=== PATIENT | female | born 1940 | race Caucasian/White ===

== ENCOUNTER 2018-03-07 13:33 | Emergency (ER) | payer OTHER ==
[2018-03-07 13:55] VITALS: BMI 25.7
--- NOTE | 2018-03-07 14:32 | PDOC ---
Attending Attestation - Resident Resident Name: Becca Markham - ED Attending Attestation I have performed the following: I have examined & evaluated the patient, The case was reviewed & discussed with the resident, I agree w/resident's findings & plan, Exceptions are as noted - HPI HPI: 03/07/18 15:17 The patient is an 78 year old female with past medical history of cholecystectomy and who presents to the ED after fall today. The patient was upstairs on the 8th floor walking with her friend when she fell to the side, hitting her head on the wall, and falling to the ground, hitting her left side. She was able to recall the event and was unable to ambulate afterwards. In the ED she complaints of left side and back pain without any numbness, tingling, or focal neurological deficits. She denies any prodromal symptoms prior to falling and can not elaborate on how she fell. Denies any fevers or chills. Denies CP, SOB. - Physicial Exam PE: 03/07/18 15:18 agree with resident exam - Medical Decision Making 03/07/18 15:19 78yo F denies PMH presents to the ED with syncopal episode without prodrome. Vitals with borderline hypotension to 90s systolic. Exam with lower back paraspinal ttp. Syncopal episode concerning for arrhythmia given lack of prodrome. Plan -labs -UA -CXR, pelvis XR -CTH, CT c-spine -admit tele obs 03/07/18 16:11 Labs wnl. CTH/c-spine negative for acute pathology CXR/pelvis XR pending Pt given robaxin and tylenol for sx control, still having difficulty walking. All pain is paraspinal, no midline spinal ttp Plan discussed with pt to admit to tele obs but she adamantly refuses to stay because she does not want to be in the hospital. Explained to patient my reason for recommending admission, especially because her syncopal episode is concerning for a possible cardiac arrhythmia. I also explained that if this were to recur, she could pass out again, or even . She still refuses to stay. The patient is clinically sober, free from distracting injury, appears to have intact insight and judgment and reason and in my opinion has the capacity to make decisions. The patient presents with syncope. I have explained that I am concerned that this may represent a deadly heart rhythm; she has verbalized an understanding of my concerns. I have told the patient that while her labs were normal, she could still have an abnormal rhythm. I have discussed the need for admission and cardiac monitoring to get more information about potential causes of the patients syncope. I have told the patient that if she leaves and has syncope or abnormal heart rhythm, she could get much worse, could become critically ill, and could possibly become disabled or . I have offered to give the patient more pain medication. I have asked her to stay in the hospital for serial labs. I have discussed these concerns with the patients friend who is at the bedside and she is unable to convince her to stay for further evaluation. The patient is not willing to undergo a observation. She is unwilling to stay overnight for monitoring. She is refusing any further care and is leaving against medical advice. I am unable to convince the patient to stay, I have asked her to return as soon as possible to complete her evaluation. I have spoken with Dr. Diego Villafana (works with pt's PMD Dr. Cortez) who spoke with the patient at the bedside and tried to convince her to stay. She refused to stay despite his conversation with her. I have answered all of her questions. Discharge Disposition - Diagnosis Syncope and collapse - Discharge Dispostion Disposition: AGAINST MEDICAL ADVICE Condition at time of disposition: Stable - Prescriptions Prescriptions: Acetaminophen [Tylenol -] 500 mg PO Q4H #100 tablet Methocarbamol [Robaxin -] 500 mg PO BID #10 tablet - Referrals Referrals: Patrice Cortez MD [Primary Care Provider] - - Patient Instructions Additional Instructions: You were seen in the ED after a fall and loss of consciousness. In the ED you were evaluated with labwork and imaging. It is recommended that you be admitted for observation in the hospital. The risks of leaving the hospital without complete evaluation for your fall and loss of consciousness include , cardiac arrest, heart attack, stroke and repeated loss of consciousness. These risks have been discussed with your for > 45min. You express understanding of these risks and still desire to leave the hospital against medical advice. You are advised to follow up with your primary care physician within 1 week for further evaluation and treatment. You were prescribed a short course of medication for pain and muscle relaxation. Please take as directed. Return to the ED immediately if you experience worsening lower back pain, headache, loss of consciousness, chest pain, shortness of breath, abdominal pain , continued difficulty walking, fever, nausea or vomiting. - Post Discharge Activity Heart Score/ECG Review #1 03/07/18 15:18 Twelve-lead EKG was performed and reviewed by me. Sinus rhythm, rate 80 to. Left axis deviation.+ Right bundle branch block.+ PVC. When compared to EKG from 11/06/2017, no significant change.
[2018-03-07 14:47] LABS: BASO % 0.6 % (0-2.0); EOS % 1.1 % (0-4.5); HEMATOCRIT 38.7 % (32.4-45.2); HEMOGLOBIN 12.9 GM/dL (10.7-15.3); LYMPH % 30.2 % (8-40); MCH 28.8 pg (25.7-33.7); MCHC 33.4 g/dl (32.0-36.0); MEAN CELL VOLUME 86.2 fl (80-96); MEAN PLT VOLUME 9.6 fl (7.5-11.1); MONO % 9.8 % (3.8-10.2); NEUT % 58.3 % (42.8-82.8); PLATELET COUNT 149 K/MM3 (134-434); RBC 4.49 M/mm3 (3.60-5.2); RDW 13.8 % (11.6-15.6); WHITE BLOOD COUNT 5.4 K/mm3 (4.0-10.0)
[2018-03-07 15:07] LABS: ALBUMIN 3.6 g/dl (3.4-5.0); ANION GAP 6 (8-16); BILIRUBIN,TOTAL 0.3 mg/dL (0.2-1.0); BLOOD UREA NITROGEN 18 mg/dL (7-18); CALCIUM 8.5 mg/dL (8.5-10.1); CHLORIDE 104 mmol/L (98-107); CO2 31 mmol/L (21-32); CREATININE 0.9 mg/dL (0.55-1.02); GLUCOSE,RANDOM 136 mg/dL (74-106); SGOT/AST 21 U/L (15-37); SGPT/ALT 20 U/L (12-78); SODIUM 141 mmol/L (136-145); TOT PROT 7.5 g/dl (6.4-8.2)
[2018-03-07 15:08] LABS: ALK PHOS 71 U/L (45-117)
[2018-03-07] MEDS ORDERED: METHOCARBAMOL 500 MG TABLET PO ONE (15:39)
--- NOTE | 2018-03-07 15:41 | PDOC ---
History of Present Illness <Phan Larson - Last Filed: 03/07/18 17:03> - History of Present Illness Initial Comments: 78 year old woman with no past medical history who presents after fall while walking down a hospital hallway and hitting her head on a wall. The patient is not on anti-coagulants. Denies tripping on the floor and does not recall what had caused her to fall and hit her head. She complains of L lower back pain, nonradiating, described as muscle pain. She denies chest pain, dizziness, vertigo, lightheadedness, nausea, headache, shortness of breath or abdominal pain. She has no other complaints at bedside. PMHX: as in HPI PSHX: cholecystectomy, c-sections Meds: none Allergies: naproxen Tob: none Etoh: none Rec drugs: none PCP: Dana <Becca Markham - Last Filed: 03/07/18 18:23> - General Chief Complaint: Syncope/Near Syncope Stated Complaint: FALL Time Seen by Provider: 03/07/18 14:05 Past History <Phan Larson - Last Filed: 03/07/18 17:03> - Past Medical History Anemia: No Asthma: No COPD: No HTN: No - Surgical History GI Surgery: Yes (Cholecystectomy) - Immunization History Immunization Up to Date: No - Suicide/Smoking/Psychosocial Hx Smoking History: Never smoked Have you smoked in the past 12 months: No Hx Alcohol Use: No Drug/Substance Use Hx: No Substance Use Type: Alcohol <Becca Markham - Last Filed: 03/07/18 18:23> - Past Medical History Allergies/Adverse Reactions: Allergies Allergy/AdvReac Type Severity Reaction Status Date / Time naproxen sodium [From Aleve] Allergy Verified 03/07/18 13:47 Home Medications: Ambulatory Orders Acetaminophen [Tylenol -] 500 mg PO Q4H #100 tablet 03/07/18 Methocarbamol [Robaxin -] 500 mg PO BID #10 tablet 03/07/18 Review of Systems - Review of Systems Able to Perform ROS?: Yes Is the patient limited Wolof proficient: No Constitutional: No: Chills, Diaphoresis, Fever HEENTM: No: Blurred Vision, Tinnitus Respiratory: No: Cough, Orthopnea, Shortness of Breath Cardiac (ROS): No: Chest Pain ABD/GI: No: Constipated, Diarrhea, Nausea, Vomiting : No: Burning, Dysuria Musculoskeletal: Yes: See HPI, Back Pain Neurological: No: Headache, Numbness, Tingling <Becca Markham - Last Filed: 03/07/18 18:23> *Physical Exam - Vital Signs Last Vital Signs Temp Pulse Resp BP Pulse Ox 97.4 F L 84 18 94/70 99 03/07/18 13:52 03/07/18 13:52 03/07/18 13:52 03/07/18 13:52 03/07/18 13:52 <NassefJcmna - Last Filed: 03/07/18 17:03> - Vital Signs Last Vital Signs Temp Pulse Resp BP Pulse Ox 97.4 F L 84 18 94/70 99 03/07/18 13:52 03/07/18 13:52 03/07/18 13:52 03/07/18 13:52 03/07/18 13:52 - Physical Exam Comments: 03/07/18 15:34 GENERAL: Awake, alert, and fully oriented, in no acute distress HEAD: No signs of trauma, normocephalic, atraumatic EYES: EOMI, sclera anicteric, conjunctiva clear ENT: oropharynx clear without exudates. Moist mucosa NECK: Normal ROM LUNGS: No distress, speaks full sentences, clear to auscultation bilaterally HEART: Regular rate and rhythm, normal S1 and S2, no murmurs, rubs or gallops, peripheral pulses normal and equal bilaterally. ABDOMEN: Soft, nontender. No guarding, no rebound. No masses BACK: + L paraspinal tenderness EXTREMITIES : Normal inspection, Normal range of motion, no edema. No clubbing or cyanosis. NEUROLOGICAL: Cranial nerves II through XII grossly intact. Normal speech, difficulty ambulating 2/2 pain, requires assistance no focal sensorimotor deficits, 5/5 strength in bilateral upper and lower extremities. SKIN: Warm, Dry, normal turgor, no rashes or lesions noted <Becca Markham - Last Filed: 03/07/18 18:23> ED Treatment Course - LABORATORY CBC & Chemistry Diagram: 03/07/18 14:31 03/07/18 14:31 - ADDITIONAL ORDERS Additional order review: Laboratory Results 03/07/18 03/07/18 14:31 14:31 Sodium 141 Potassium 4.0 Chloride 104 Carbon Dioxide 31 Anion Gap 6 L BUN 18 Creatinine 0.9 Creat Clearance w eGFR > 60 Random Glucose 136 H Calcium 8.5 Total Bilirubin 0.3 AST 21 ALT 20 Alkaline Phosphatase 71 Troponin I < 0.02 Total Protein 7.5 Albumin 3.6 03/07/18 14:31 RBC 4.49 MCV 86.2 MCHC 33.4 RDW 13.8 MPV 9.6 Neutrophils % 58.3 D Lymphocytes % 30.2 D Monocytes % 9.8 Eosinophils % 1.1 Basophils % 0.6 - RADIOLOGY Radiology Studies Ordered: Category Date Time Status CERVICAL SPINE CT W/O CONTR [CT] Stat CT Scan 03/07/18 14:[address] WITHOUT CONTRAST [CT] Stat CT Scan 03/07/18 14:35 Completed CHEST X-RAY PORTABLE* [RAD] Stat Radiology 03/07/18 14:35 Taken PELVIS [RAD] Stat Radiology 03/07/18 14:35 Taken - Medications Given in the ED: ED Medications Discontinued Medications Generic Name Dose Route Start Last Admin Trade Name Freq PRN Reason Stop Dose Admin Acetaminophen 1,000 mg 03/07/18 15:49 03/07/18 16:15 Ofirmev Injection - IVPB 03/07/18 15:50 1,000 mg ONCE ONE Administration Methocarbamol 500 mg 03/07/18 15:39 03/07/18 15:42 Robaxin - PO 03/07/18 15:40 500 mg ONCE ONE Administration <Nassef,Yomna - Last Filed: 03/07/18 17:03> - LABORATORY CBC & Chemistry Diagram: 03/07/18 14:31 03/07/18 14:31 - ADDITIONAL ORDERS Additional order review: Laboratory Results 03/07/18 03/07/18 14:31 14:31 Sodium 141 Potassium 4.0 Chloride 104 Carbon Dioxide 31 Anion Gap 6 L BUN 18 Creatinine 0.9 Creat Clearance w eGFR > 60 Random Glucose 136 H Calcium 8.5 Total Bilirubin 0.3 AST 21 ALT 20 Alkaline Phosphatase 71 Troponin I < 0.02 Total Protein 7.5 Albumin 3.6 03/07/18 14:31 RBC 4.49 MCV 86.2 MCHC 33.4 RDW 13.8 MPV 9.6 Neutrophils % 58.3 D Lymphocytes % 30.2 D Monocytes % 9.8 Eosinophils % 1.1 Basophils % 0.6 <Becca Markham - Last Filed: 03/07/18 18:23> Medical Decision Making - Medical Decision Making 78 year old woman with no past medical history who presents after fall while walking down a hospital hallway and hitting her head on a wall. The patient is not on anti-coagulants. Denies tripping on the floor and does not recall what had caused her to fall and hit her head. DDX: Arrythmia vs ACS vs intracranial bleed / aneurysm W/U: - head CT, Cspine CT - cbc, cmp, trop - pelvic XR, CXR - ua, ucx - EKG TX: - Tylenol - Robaxin ED Course: Patient assessed. Stable at bedside. 03/07/18 15:41 Patient reassessed. Stable. Robaxin and Tylenol ordered. Patient desires to go home and not be admitted for observation. 03/07/18 15:51 Attending at bedside. Discussed with patient that the risks of going home against medical advise include , heart attack, stroke, repeated loss of consciousness. Patient taken to XR. Unable to ambulate w/o assistance. Pelvic XR: unremarkable CXR: unremarkable UA: 15 wbc Patient at test desk trouble locator desires to leave AMA. Patient giving thorough discharge instruction, prescription for pain and muscle relaxant sent, able to ambulate slowly without assistance. Attending with patient, observed ambulation, reminded patient of risks of leaving and need for further evaluation. Patient discharged AMA 03/07/18 18:18 03/07/18 18:19 03/07/18 18:21 03/07/18 18:21 <Becca Markham - Last Filed: 03/07/18 18:23> *DC/Admit/Observation/Transfer - Attestations Physician Attestion: 03/07/18 17:04 I, Dr. Phan Larson MD, attest that this document has been prepared under my direction and personally reviewed by me in its entirety. I further attest, that it accurately reflects all work, treatment, procedures and medical decision -making performed by me. <Phan Larson - Last Filed: 03/07/18 17:03> - Discharge Dispostion Decision to Admit order: No <Becca Markham - Last Filed: 03/07/18 18:23> Diagnosis at time of Disposition: Syncope and collapse - Discharge Dispostion Disposition: AGAINST MEDICAL ADVICE Condition at time of disposition: Stable - Prescriptions Prescriptions: Acetaminophen [Tylenol -] 500 mg PO Q4H #100 tablet Methocarbamol [Robaxin -] 500 mg PO BID #10 tablet - Referrals Referrals: Patrice Cortez MD [Primary Care Provider] - - Patient Instructions Additional Instructions: You were seen in the ED after a fall and loss of consciousness. In the ED you were evaluated with labwork and imaging. It is recommended that you be admitted for observation in the hospital. The risks of leaving the hospital without complete evaluation for your fall and loss of consciousness include , cardiac arrest, heart attack, stroke and repeated loss of consciousness. These risks have been discussed with your for > 45min. You express understanding of these risks and still desire to leave the hospital against medical advice. You are advised to follow up with your primary care physician within 1 week for further evaluation and treatment. You were prescribed a short course of medication for pain and muscle relaxation. Please take as directed. Return to the ED immediately if you experience worsening lower back pain, headache, loss of consciousness, chest pain, shortness of breath, abdominal pain , continued difficulty walking, fever, nausea or vomiting. - Post Discharge Activity
[2018-03-07] MEDS ORDERED: METHOCARBAMOL 500 MG TABLET ONE (15:42)
[2018-03-07] MEDS ORDERED: ACETAMINOPHEN 1000 MG/100 ML VIAL (NON FORMULARY) IVPB ONE (15:49)
[2018-03-07] MEDS ORDERED: ACETAMINOPHEN INJECTION 100 ML IVPB ONE (15:59)
[2018-03-07 17:05] LABS: URINE APPEARANCE CLOUDY; URINE BILIRUBIN NEGATIVE (<2.0 mg/dL); URINE COLOR YELLOW; URINE GLUCOSE (UA) NEGATIVE (NEGATIVE); URINE KETONE NEGATIVE (NEGATIVE); URINE LEUK ESTERASE 1+ (NEGATIVE); URINE NITRITE NEGATIVE (NEGATIVE); URINE PROTEIN NEGATIVE (NEGATIVE); URINE UROBILINOGEN NEGATIVE mg/dL (0.2-1.0)
[2018-03-07 17:07] LABS: EPI CELLS FEW /HPF (FEW); URINE BACTERIA FEW /hpf (NONE SEEN); URINE MUCUS FEW
[2018-03-07 17:52] VITALS: BP 136/76; PULSE 85; TEMP 98.2
--- NOTE | 2018-03-09 13:15 | EKG ---
Test Reason : Blood Pressure : / mmHG Vent. Rate : 082 BPM Atrial Rate : 082 BPM P-R Int : 192 ms QRS Dur : 120 ms QT Int : 420 ms P-R-T Axes : 061 -42 022 degrees QTc Int : 490 ms SINUS RHYTHM WITH OCCASIONAL PREMATURE VENTRICULAR COMPLEXES LEFT AXIS DEVIATION RIGHT BUNDLE BRANCH BLOCK ABNORMAL ECG Confirmed by Andrew Nicolas MD ([id number]) on 03/09/2018 1:14:54 PM Referred By: Confirmed By:Andrew Nicolas MD
== END 2018-03-07 17:50 | disposition left against medical advice (07) ==
LOC: JER 13:33
DX: R55 Syncope and collapse (principal); M54.5 Low back pain; W01.198A Fall on same level from slipping, tripping and stumbling with subsequent striking against other object, initial encounter; Y93.01 Activity, walking, marching and hiking; Y92.232 Corridor of hospital as the place of occurrence of the external cause; Y99.8 Other external cause status
CPT/HCPCS: 36415; 70450-TC; 71045-TC-FY; 72125-TC; 72170-TC-FY; 80053; 81003; 81015; 84484; 85025; 87086; 87186; 93005; 93010; 99283-25; J0131

== ENCOUNTER 2022-07-28 08:41 | Inpatient (IN) | payer OTHER ==
[2022-07-28 10:19] LABS: PH,URINE 7.5 (5.0-8.0); URINE APPEARANCE TURBID; URINE BILIRUBIN NEGATIVE (NEGATIVE); URINE COLOR YELLOW; URINE GLUCOSE (UA) NEGATIVE (NEGATIVE); URINE KETONE NEGATIVE (NEGATIVE)
[2022-07-28 10:20] LABS: EPI CELLS 44 /uL (0-25.1); HYALINE CASTS 1 /uL (0-3.1); URINE BACTERIA 18650 /uL (0-1359); URINE LEUK ESTERASE NEGATIVE (NEGATIVE); URINE NITRITE POSITIVE (NEGATIVE); URINE PROTEIN NEGATIVE (NEGATIVE); URINE RBC 50 /uL (0-23.9); URINE UROBILINOGEN 0.2 mg/dL (0.2-1.0); URINE WBC 33 /uL (0-25.8)
[2022-07-28] MEDS ORDERED: CEFTRIAXONE 1,000 MG in DEXTROSE 5%-WATER - 50 ML IVPB ONE (11:32)
[2022-07-28] MEDS ORDERED: CEFTRIAXONE 1 GM/50 ML BAG ONE (11:49)
[2022-07-28 12:16] LABS: BASO % 0.6 % (0-2.0); EOS % 0.2 % (0-4.5); HEMATOCRIT 37.9 % (32.4-45.2); HEMOGLOBIN 12.2 GM/dL (10.7-15.3); LYMPH % 11.6 % (8-40); MCH 27.4 pg (25.7-33.7); MCHC 32.4 g/dl (32.0-36.0); MEAN CELL VOLUME 84.6 fl (80-96); MEAN PLT VOLUME 9.7 fl (7.5-11.1); MONO % 9.5 % (3.8-10.2); NEUT % 78.1 % (42.8-82.8); PLATELET COUNT 246 10^3/uL (134-434); RBC 4.47 M/mm3 (3.60-5.2); RDW 14.1 % (11.6-15.6); WHITE BLOOD COUNT 8.6 K/mm3 (4.0-10.0)
[2022-07-28 12:25] LABS: INR 1.01 (0.83-1.09); PROTHROMBIN TIME (PATIENT) 11.6 SEC (9.7-13.0)
[2022-07-28 12:28] LABS: ACTIVATED PTT 27.7 SECONDS (25.2-36.5)
[2022-07-28] MEDS ORDERED: ACETAMINOPHEN 1000 MG/100 ML BAG IVPB ONE (12:29)
[2022-07-28 12:32] LABS: BLOOD UREA NITROGEN 22.6 mg/dL (7-18); CALCIUM 8.9 mg/dL (8.5-10.1)
[2022-07-28 12:33] LABS: ALBUMIN 3.2 g/dl (3.4-5.0)
[2022-07-28 12:36] LABS: CREATININE 0.8 mg/dL (0.55-1.3)
[2022-07-28 12:37] LABS: BILIRUBIN,TOTAL 0.5 mg/dL (0.2-1); TOT PROT 6.8 g/dl (6.4-8.2)
[2022-07-28 12:41] LABS: N-TERMINAL BNP 1356.5 pg/ml (5-450)
[2022-07-28] MEDS ORDERED: LIDOCAINE 5% TOPICAL PATCH TP ONE (13:39)
[2022-07-28] MEDS ORDERED: LIDOCAINE 5% TOPICAL PATCH ONE (14:28)
[2022-07-28] MEDS ORDERED: ACETAMINOPHEN INJECTION 100 ML IVPB ONE (14:28)
[2022-07-28] MEDS: LIDOCAINE PATCH REMOVAL MC SCH (21:18)
[2022-07-29 03:53] VITALS: BMI 26.4
[2022-07-29] MEDS ORDERED: ACETAMINOPHEN 325 MG TABLET (FP) PO PRN (08:49)
[2022-07-29] MEDS ORDERED: ACETAMINOPHEN 1000 MG/100 ML BAG IVPB PRN (09:27)
[2022-07-29 09:32] LABS: BASO % 0.6 % (0-2.0); EOS % 3.3 % (0-4.5); HEMATOCRIT 36.7 % (32.4-45.2); HEMOGLOBIN 11.8 GM/dL (10.7-15.3); LYMPH % 31.1 % (8-40); MCH 27.2 pg (25.7-33.7); MCHC 32.2 g/dl (32.0-36.0); MEAN CELL VOLUME 84.5 fl (80-96); MEAN PLT VOLUME 9.2 fl (7.5-11.1); MONO % 13.2 % (3.8-10.2); NEUT % 51.8 % (42.8-82.8); PLATELET COUNT 215 10^3/uL (134-434); RBC 4.34 M/mm3 (3.60-5.2); RDW 13.7 % (11.6-15.6); WHITE BLOOD COUNT 6.4 K/mm3 (4.0-10.0)
[2022-07-29 10:00] LABS: CALCIUM 8.7 mg/dL (8.5-10.1)
[2022-07-29 10:01] LABS: ALBUMIN 2.8 g/dl (3.4-5.0); BLOOD UREA NITROGEN 24.6 mg/dL (7-18)
[2022-07-29 10:04] LABS: CREATININE 0.8 mg/dL (0.55-1.3)
[2022-07-29 10:05] LABS: BILIRUBIN,TOTAL 0.5 mg/dL (0.2-1); TOT PROT 6.2 g/dl (6.4-8.2)
[2022-07-29 10:06] LABS: PHOSPHOROUS 3.3 mg/dL (2.5-4.9)
[2022-07-29] MEDS: ENOXAPARIN NA (PORCINE) 40 MG/0.4 ML DISP.SYRIN SQ SCH (10:16)
[2022-07-29] MEDS: CEFTRIAXONE 1 GM in DEXTROSE 5%-WATER - 50 ML IVPB SCH (19:00)
[2022-07-29] MEDS: LIDOCAINE PATCH REMOVAL MC SCH (23:28)
[2022-07-29] MEDS: POLYETHYLENE GLYCOL (HEALTHYLAX) 3350 17 GM PACKET PO SCH (23:28)
[2022-07-30 09:14] LABS: BASO % 0.8 % (0-2.0); EOS % 5.2 % (0-4.5); HEMATOCRIT 40.6 % (32.4-45.2); HEMOGLOBIN 13.1 GM/dL (10.7-15.3); LYMPH % 27.7 % (8-40); MCH 27.3 pg (25.7-33.7); MCHC 32.3 g/dl (32.0-36.0); MEAN CELL VOLUME 84.6 fl (80-96); MEAN PLT VOLUME 9.1 fl (7.5-11.1); MONO % 11.9 % (3.8-10.2); NEUT % 54.4 % (42.8-82.8); PLATELET COUNT 252 10^3/uL (134-434); WHITE BLOOD COUNT 6.3 K/mm3 (4.0-10.0)
[2022-07-30 09:35] LABS: CALCIUM 8.8 mg/dL (8.5-10.1)
[2022-07-30 09:36] LABS: ALBUMIN 2.9 g/dl (3.4-5.0); BLOOD UREA NITROGEN 18.3 mg/dL (7-18); MAGNESIUM 2.2 mg/dL (1.8-2.4)
[2022-07-30 09:39] LABS: CREATININE 0.8 mg/dL (0.55-1.3)
[2022-07-30 09:41] LABS: BILIRUBIN,TOTAL 0.4 mg/dL (0.2-1); TOT PROT 6.7 g/dl (6.4-8.2)
[2022-07-30] MEDS ORDERED: REGADENOSON 0.4 MG/5 ML PRE-FILLED SYRINGE IVPUSH ONE ×2 (10:00)
[2022-07-30] MEDS: POLYETHYLENE GLYCOL (HEALTHYLAX) 3350 17 GM PACKET PO SCH ×2 (13:18→21:41)
[2022-07-30] MEDS: ENOXAPARIN NA (PORCINE) 40 MG/0.4 ML DISP.SYRIN SQ SCH (13:43)
[2022-07-30] MEDS: CEFTRIAXONE 1 GM in DEXTROSE 5%-WATER - 50 ML IVPB SCH (13:45)
[2022-07-30] MEDS: ACETAMINOPHEN 325 MG TABLET (FP) PO PRN (13:48)
[2022-07-30] MEDS: LIDOCAINE PATCH REMOVAL MC SCH ×2 (21:41→21:43)
[2022-07-30 22:23] VITALS: RESP 18
[2022-07-31] MEDS: POLYETHYLENE GLYCOL (HEALTHYLAX) 3350 17 GM PACKET PO SCH ×2 (09:54→21:45)
[2022-07-31] MEDS: CEFTRIAXONE 1 GM in DEXTROSE 5%-WATER - 50 ML IVPB SCH (09:54)
[2022-07-31] MEDS: ENOXAPARIN NA (PORCINE) 40 MG/0.4 ML DISP.SYRIN SQ SCH (09:54)
[2022-07-31 11:16] LABS: BASO % 0.7 % (0-2.0); EOS % 5.3 % (0-4.5); HEMATOCRIT 37.8 % (32.4-45.2); HEMOGLOBIN 12.4 GM/dL (10.7-15.3); LYMPH % 26.7 % (8-40); MCH 27.9 pg (25.7-33.7); MCHC 32.9 g/dl (32.0-36.0); MEAN CELL VOLUME 84.9 fl (80-96); MEAN PLT VOLUME 9.3 fl (7.5-11.1); MONO % 13.1 % (3.8-10.2); NEUT % 54.2 % (42.8-82.8); PLATELET COUNT 235 10^3/uL (134-434); RBC 4.45 M/mm3 (3.60-5.2); RDW 13.8 % (11.6-15.6); WHITE BLOOD COUNT 6.7 K/mm3 (4.0-10.0)
[2022-07-31 11:45] LABS: CALCIUM 8.8 mg/dL (8.5-10.1)
[2022-07-31 11:46] LABS: ALBUMIN 2.8 g/dl (3.4-5.0); BLOOD UREA NITROGEN 29.4 mg/dL (7-18)
[2022-07-31 11:49] LABS: CREATININE 0.9 mg/dL (0.55-1.3)
[2022-07-31 11:51] LABS: BILIRUBIN,TOTAL 0.4 mg/dL (0.2-1); TOT PROT 6.4 g/dl (6.4-8.2)
[2022-07-31] MEDS: LIDOCAINE PATCH REMOVAL MC SCH (21:45)
[2022-08-01] MEDS: ACETAMINOPHEN 325 MG TABLET (FP) PO PRN (08:34)
[2022-08-01 09:48] LABS: BASO % 0.7 % (0-2.0); EOS % 4.7 % (0-4.5); HEMATOCRIT 39.8 % (32.4-45.2); HEMOGLOBIN 12.9 GM/dL (10.7-15.3); MCH 27.4 pg (25.7-33.7); MCHC 32.4 g/dl (32.0-36.0); MEAN CELL VOLUME 84.4 fl (80-96); MEAN PLT VOLUME 9.1 fl (7.5-11.1); MONO % 14.2 % (3.8-10.2); NEUT % 56.4 % (42.8-82.8); PLATELET COUNT 244 10^3/uL (134-434); RBC 4.72 M/mm3 (3.60-5.2); RDW 13.8 % (11.6-15.6); WHITE BLOOD COUNT 6.3 K/mm3 (4.0-10.0)
[2022-08-01 10:25] LABS: BLOOD UREA NITROGEN 26.8 mg/dL (7-18)
[2022-08-01 10:28] LABS: BILIRUBIN,TOTAL 0.4 mg/dL (0.2-1); CREATININE 0.8 mg/dL (0.55-1.3); MAGNESIUM 2.2 mg/dL (1.8-2.4); TOT PROT 6.6 g/dl (6.4-8.2)
[2022-08-01] MEDS: POLYETHYLENE GLYCOL (HEALTHYLAX) 3350 17 GM PACKET PO SCH (11:10)
[2022-08-01] MEDS: CEFTRIAXONE 1 GM in DEXTROSE 5%-WATER - 50 ML IVPB SCH (11:10)
[2022-08-01] MEDS: ENOXAPARIN NA (PORCINE) 40 MG/0.4 ML DISP.SYRIN SQ SCH (11:10)
[2022-08-01 15:00] VITALS: BP 134/85; PULSE 72; TEMP 97.8
== END 2022-08-01 19:24 | DRG 552 ==
LOC: JER 08:41 → INTOOBSV 12:39 → UNDOADMOB 12:39 → JERBED 12:39 → J8W 20:24 → OBSVTOIN 07-29 09:38
PROVIDERS: ADMIT Internal Medicine; ATTEND Nurse Practitioner Acute Care
DX: S32.051A Stable burst fracture of fifth lumbar vertebra, initial encounter for closed fracture (principal); I45.2 Bifascicular block; N39.0 Urinary tract infection, site not specified; I50.22 Chronic systolic (congestive) heart failure; J32.9 Chronic sinusitis, unspecified; M54.30 Sciatica, unspecified side; W18.39XA Other fall on same level, initial encounter; Y92.098 Other place in other non-institutional residence as the place of occurrence of the external cause; B96.20 Unspecified Escherichia coli [E. coli] as the cause of diseases classified elsewhere; B95.4 Other streptococcus as the cause of diseases classified elsewhere
CPT/HCPCS: 0241U-QW; 36415; 70450-TC; 71045-TC-FY; 72125-TC; 72131-TC; 78452-TC; 80053; 81003; 83735; 83880; 84100; 84484; 85025; 85610; 85730; 87086; 87186; 93005; 93010; 93017; 93306-TC; 97116-GP; 97161-GP; 99285-25; A9502; C9803-CS; G0378; J2785; U0003; U0005

== ENCOUNTER 2022-09-26 04:15 | Day surgery (SDC) | payer OTHER ==
[2022-09-24 13:43] VITALS: BMI 26.6
[~2022-09-26 04:15] MED LIST: BUPIVACAINE HCL/PF 0.75% 10 ML VIAL PNB ONE; IOHEXOL 180 MG/1 ML ML IJ ONE; LIDOCAINE HCL 1% PRESERVATIVE FREE - 30ML VIAL PNB ONE
[2022-09-26] MEDS ORDERED: LIDOCAINE HCL/PF 1% SDV 5ML VIAL ONE (07:29)
[2022-09-26] MEDS ORDERED: BUPIVACAINE HCL/PF 0.75% 10 ML VIAL ONE (07:29)
[2022-09-26] MEDS ORDERED: LIDOCAINE HCL 1% PRESERVATIVE FREE - 30ML VIAL PNB ONE (13:40)
[2022-09-26] MEDS ORDERED: BUPIVACAINE HCL/PF 0.75% 10 ML VIAL PNB ONE ×2 (13:40)
[2022-09-26 14:20] VITALS: RESP 16; TEMP 98.3
[2022-09-26 15:17] VITALS: BP 140/82; PULSE 86
== END 2022-09-26 15:10 | disposition home or self-care (01) ==
LOC: JASU-SURG 04:15
PROVIDERS: ATTEND Pain Medicine Pain Medicine
PROC: 3E0T3BZ Introduction of Anesthetic Agent into Peripheral Nerves and Plexi, Percutaneous Approach (ICD-10-PCS; principal; 2022-09-26 13:15)
DX: M47.816 Spondylosis without myelopathy or radiculopathy, lumbar region (principal)
CPT/HCPCS: 76000-TC-FY; C9803-CS; U0003; U0005

== ENCOUNTER 2022-10-24 04:14 | Day surgery (SDC) | payer OTHER ==
[2022-10-17 16:02] VITALS: BMI 26.6
[2022-10-24] MEDS ORDERED: LIDOCAINE HCL/PF 1% SDV 5ML VIAL ONE (07:35)
[2022-10-24] MEDS ORDERED: BUPIVACAINE HCL/PF 0.75% 10 ML VIAL ONE (07:35)
[2022-10-24] MEDS ORDERED: BUPIVACAINE HCL/PF 0.75% 10 ML VIAL NR ONE (12:28)
[2022-10-24] MEDS ORDERED: LIDOCAINE 1% P/F 10 MG/ML VIAL INF ONE (12:28)
[2022-10-24 13:18] VITALS: BP 165/61; PULSE 74; RESP 16; TEMP 97.3
[2022-10-24] MEDS ORDERED: ACETAMINOPHEN 500 MG TABLET (FP) PO PRN (16:08)
== END 2022-10-24 14:00 | disposition home or self-care (01) ==
LOC: JASU-SURG 04:14
PROVIDERS: ATTEND Pain Medicine Pain Medicine
PROC: 3E0T3BZ Introduction of Anesthetic Agent into Peripheral Nerves and Plexi, Percutaneous Approach (ICD-10-PCS; principal; 2022-10-24 13:15)
DX: M47.816 Spondylosis without myelopathy or radiculopathy, lumbar region (principal)
CPT/HCPCS: 76000-TC-FY

== ENCOUNTER 2022-11-21 03:56 | Day surgery (SDC) | payer OTHER ==
[2022-11-19 13:17] VITALS: BMI 26.6
[~2022-11-21 03:56] MED LIST changes: -BUPIVACAINE HCL/PF 0.75% 10 ML VIAL PNB ONE; -IOHEXOL 180 MG/1 ML ML IJ ONE; +LIDOCAINE HCL 1% PRESERVATIVE FREE - 30ML VIAL INF ONE; -LIDOCAINE HCL 1% PRESERVATIVE FREE - 30ML VIAL PNB ONE; +LIDOCAINE HCL/PF 2% SDV 5ML VIAL INF ONE
[2022-11-21] MEDS ORDERED: LIDOCAINE HCL/PF 2% SDV 5ML VIAL ONE (07:25)
[2022-11-21] MEDS ORDERED: BUPIVACAINE HCL/PF 0.75% 10 ML VIAL ONE (07:25)
[2022-11-21] MEDS ORDERED: DEXAMETHASONE SOD PHOSPHATE 10 MG/1 ML VIAL ONE (07:25)
[2022-11-21] MEDS ORDERED: LIDOCAINE HCL/PF 1% SDV 5ML VIAL ONE (07:25)
[2022-11-21] MEDS ORDERED: ACETAMINOPHEN 500 MG TABLET (FP) PO PRN (08:58)
[2022-11-21 11:18] VITALS: RESP 20
[2022-11-21] MEDS ORDERED: LIDOCAINE HCL 1% PRESERVATIVE FREE - 30ML VIAL INF ONE (12:00)
[2022-11-21] MEDS ORDERED: LIDOCAINE HCL/PF 2% SDV 5ML VIAL INF ONE (12:00)
[2022-11-21] MEDS ORDERED: DEXAMETHASONE SOD PHOSPHATE 10 MG/1 ML VIAL IM ONE (12:00)
[2022-11-21 12:40] VITALS: TEMP 97.8
[2022-11-21 13:15] VITALS: BP 120/70; PULSE 80
== END 2022-11-21 13:00 | disposition home or self-care (01) ==
LOC: JASU-SURG 03:56
PROVIDERS: ATTEND Pain Medicine Pain Medicine
PROC: 015B3ZZ Destruction of Lumbar Nerve, Percutaneous Approach (ICD-10-PCS; principal; 2022-11-21 10:00)
DX: M47.816 Spondylosis without myelopathy or radiculopathy, lumbar region (principal)
CPT/HCPCS: 76000-TC-FY; J1100

== ENCOUNTER 2022-12-26 04:02 | Day surgery (SDC) | payer OTHER ==
[2022-12-24 14:10] VITALS: BMI 26.6
[~2022-12-26 04:02] MED LIST changes: +BUPIVACAINE HCL/PF 0.5% (5 MG/ML) 30 ML VIAL IJ ONE; +DEXAMETHASONE SOD PHOSPHATE 10 MG/1 ML VIAL IM ONE; +IOHEXOL 180 MG/1 ML ML IJ ONE; +LIDOCAINE HCL 1% PRESERVATIVE FREE - 30ML VIAL IJ ONE; -LIDOCAINE HCL 1% PRESERVATIVE FREE - 30ML VIAL INF ONE; -LIDOCAINE HCL/PF 2% SDV 5ML VIAL INF ONE
[2022-12-26] MEDS ORDERED: LIDOCAINE HCL/PF 2% SDV 5ML VIAL ONE ×2 (07:32→14:58)
[2022-12-26] MEDS ORDERED: LIDOCAINE HCL/PF 1% SDV 5ML VIAL ONE (07:32)
[2022-12-26] MEDS ORDERED: DEXAMETHASONE SOD PHOSPHATE 10 MG/1 ML VIAL ONE ×2 (07:32→13:12)
[2022-12-26] MEDS ORDERED: ACETAMINOPHEN 500 MG TABLET (FP) PO PRN (08:33)
[2022-12-26] MEDS ORDERED: DEXAMETHASONE SOD PHOSPHATE 10 MG/1 ML VIAL IM ONE (13:31)
[2022-12-26] MEDS ORDERED: IOHEXOL 180 MG/1 ML ML IJ ONE (13:31)
[2022-12-26] MEDS ORDERED: BUPIVACAINE HCL/PF 0.5% (5 MG/ML) 30 ML VIAL IJ ONE (13:31)
[2022-12-26] MEDS ORDERED: LIDOCAINE HCL/PF 2% SDV 5ML VIAL INF ONE (13:31)
[2022-12-26] MEDS ORDERED: LIDOCAINE HCL 1% PRESERVATIVE FREE - 30ML VIAL IJ ONE (13:31)
[2022-12-26 15:46] VITALS: RESP 18; TEMP 98.2
[2022-12-26 15:49] VITALS: BP 150/60; PULSE 74
== END 2022-12-26 14:35 | disposition home or self-care (01) ==
LOC: JASU-SURG 04:02
PROVIDERS: ATTEND Pain Medicine Pain Medicine
PROC: 015B3ZZ Destruction of Lumbar Nerve, Percutaneous Approach (ICD-10-PCS; principal; 2022-12-26 13:00)
DX: M47.816 Spondylosis without myelopathy or radiculopathy, lumbar region (principal)
CPT/HCPCS: 76000-TC-FY; J1100

== ENCOUNTER 2023-01-30 05:23 | Day surgery (SDC) | payer OTHER ==
[2023-01-28 14:40] VITALS: BMI 26.6
[2023-01-30] MEDS ORDERED: LIDOCAINE HCL/PF 1% SDV 5ML VIAL ONE (07:20)
[2023-01-30] MEDS ORDERED: BUPIVACAINE HCL/PF 0.5% (5MG/ML) 10 ML VIAL ONE (07:20)
[2023-01-30] MEDS ORDERED: TRIAMCINOLONE ACET 40MG/1ML VIAL ONE (07:39)
[2023-01-30] MEDS ORDERED: IOHEXOL 180 MG/1 ML ML IJ ONE (11:13)
[2023-01-30] MEDS ORDERED: LIDOCAINE HCL 1% PRESERVATIVE FREE - 30ML VIAL IJ ONE ×2 (11:13)
[2023-01-30] MEDS ORDERED: BUPIVACAINE HCL/PF 0.5% (5MG/ML) 10 ML VIAL IJ ONE (11:13)
[2023-01-30] MEDS ORDERED: TRIAMCINOLONE ACETONIDE 40 MG/ML 10 ML VIAL IJ ONE (11:13)
[2023-01-30 11:56] VITALS: RESP 18
[2023-01-30 12:30] VITALS: BP 142/60; PULSE 70; TEMP 98
[2023-01-30] MEDS ORDERED: ACETAMINOPHEN 500 MG TABLET (FP) PO PRN (14:56)
== END 2023-01-30 12:05 | disposition home or self-care (01) ==
LOC: JASU-SURG 05:23
PROVIDERS: ATTEND Pain Medicine Pain Medicine
PROC: 3E023BZ Introduction of Anesthetic Agent into Muscle, Percutaneous Approach (ICD-10-PCS; 2023-01-30)
PROC: 3E0233Z Introduction of Anti-inflammatory into Muscle, Percutaneous Approach (ICD-10-PCS; principal; 2023-01-30 11:30)
DX: M53.3 Sacrococcygeal disorders, not elsewhere classified (principal)
CPT/HCPCS: 76000-TC-FY

== ENCOUNTER 2023-12-04 13:37 | Emergency (ER) | payer OTHER ==
[2023-12-04 14:34] VITALS: RESP 15; BMI 26.4
[2023-12-04 14:57] LABS: BASO % 0.5 % (0-2.0); EOS % 0.9 % (0-4.5); HEMATOCRIT 37.9 % (32.4-45.2); HEMOGLOBIN 12.6 GM/dL (10.7-15.3); LYMPH % 32.1 % (8-40); MCH 28.7 pg (25.7-33.7); MCHC 33.1 g/dl (32.0-36.0); MEAN CELL VOLUME 86.7 fl (80-96); MEAN PLT VOLUME 8.8 fl (7.5-11.1); MONO % 10.2 % (3.8-10.2); NEUT % 56.3 % (42.8-82.8); PLATELET COUNT 190 10^3/uL (134-434); RBC 4.38 M/mm3 (3.60-5.2); RDW 13.9 % (11.6-15.6); WHITE BLOOD COUNT 6.8 K/mm3 (4.0-10.0)
[2023-12-04 15:07] LABS: INR 1.02 (0.83-1.09); PROTHROMBIN TIME (PATIENT) 11.5 SEC (9.7-13.0)
[2023-12-04 15:10] LABS: ACTIVATED PTT 33.7 SECONDS (25.2-36.5)
[2023-12-04 15:17] LABS: POTASSIUM 4.2 mmol/L (3.5-5.1)
[2023-12-04 15:19] LABS: CALCIUM 9.1 mg/dL (8.5-10.1)
[2023-12-04 15:20] LABS: ALBUMIN 3.4 g/dl (3.4-5.0); BLOOD UREA NITROGEN 21.8 mg/dL (7-18); MAGNESIUM 2.1 mg/dL (1.8-2.4)
[2023-12-04 15:23] LABS: CREATININE 0.9 mg/dL (0.55-1.3)
[2023-12-04 15:24] LABS: TOT PROT 6.9 g/dl (6.4-8.2)
[2023-12-04 15:25] LABS: BILIRUBIN,TOTAL 0.5 mg/dL (0.2-1)
[2023-12-04] MEDS ORDERED: ACETAMINOPHEN 325 MG TABLET (FP) ONE (16:58)
[2023-12-04] MEDS ORDERED: LIDOCAINE 4% PATCH TP ONE (16:59)
[2023-12-04] MEDS: LIDOCAINE 4% PATCH TP ONE (17:13)
[2023-12-04] MEDS: ACETAMINOPHEN 325 MG TABLET (FP) PO ONE (17:15)
[2023-12-04 17:18] VITALS: BP 150/70; PULSE 72; TEMP 97.6
[2023-12-04] MEDS ORDERED: LIDOCAINE PATCH REMOVAL MC SCH (22:00)
== END 2023-12-04 18:17 | disposition home or self-care (01) ==
LOC: JER 13:37
DX: I10 Essential (primary) hypertension (principal); R00.1 Bradycardia, unspecified
CPT/HCPCS: 36415; 71045-TC-FY; 80053; 83735; 84443; 84484; 85025; 85610; 85730; 93005; 93010; 99285-25